=== PATIENT | male | born 1970 | race Caucasian/White ===

== ENCOUNTER 2018-05-30 11:47 | Inpatient (IN) | payer MEDICAID, OTHER ==
[~2018-05-30] VITALS: Ht 190.5 cm; Wt 73.0 kg
[2018-05-30] MEDS ORDERED: normal saline 1000ML IV soln IV ONE (12:25)
[2018-05-30 13:31] LABS: BASOPHILS % (AUTO) 0 % (0-1); EOSINOPHILS % (AUTO) 0.1 % (0-6); HEMATOCRIT 39.6 % (42.0-52.0); HEMOGLOBIN 12.9 g/dl (14.0-17.9); LYMPHOCYTES # (AUTO) 0.4 X10'3 (1.1-4.8); LYMPHOCYTES % (AUTO) 1.6 % (21-51); MEAN CORPUSCULAR HEMOGLOBIN 28.8 PG (27.0-31.0); MEAN CORPUSCULAR HGB CONC 32.4 % (33.0-36.5); MEAN CORPUSCULAR VOLUME 88.7 FL (78-98); MONOCYTES # (AUTO) 0.2 X10'3 (0-0.9); MONOCYTES % (AUTO) 0.7 % (2-12); NEUTROPHILS # (AUTO) 21.8 X10'3 (1.8-7.7); NEUTROPHILS % (AUTO) 97.6 % (42-75); PLATELET COUNT 295 X10'3 (140-440); RED BLOOD COUNT 4.46 X10'6 (4.70-6.10); RED CELL DISTRIBUTION WIDTH 14.9 % (11.5-14.5); WHITE BLOOD COUNT 22.4 X10'3 (4.5-11.0)
[2018-05-30 13:43] LABS: ALANINE AMINOTRANSFERASE 26 U/L (12-78); ALBUMIN 1.7 G/DL (3.4-5.0); ALBUMIN/GLOBULIN RATIO 0.4 (1.1-1.5); ALKALINE PHOSPHATASE 150 IU/L (46-116); ANION GAP 11 (8-16); ASPARTATE AMINO TRANSFERASE 15 U/L (10-37); BILIRUBIN,TOTAL 0.5 MG/DL (0.1-1.0); BLOOD UREA NITROGEN 33 MG/DL (7-18); BUN/CREATININE RATIO 20.9 (5.4-32.0); CHLORIDE 99 MMOL/L (99-107); CREATININE 1.58 MG/DL (0.60-1.10); GLUCOSE 104 MG/DL (70-104); MAGNESIUM 1.6 MG/DL (1.5-2.4); POTASSIUM 3.3 MMOL/L (3.5-5.1); SODIUM 137 MMOL/L (135-145); TOTAL PROTEIN 6.5 G/DL (6.4-8.2); eGFR 47 ML/MIN
[2018-05-30] MEDS ORDERED: iohexol 350MG/ML 100ml bottle IV ONE (13:47)
[2018-05-30 14:03] LABS: PLATELET ESTIMATE NORMAL; TOTAL CELLS COUNTED 100; TOXIC GRANULATION 1+
[2018-05-30] MEDS ORDERED: NO HOME MEDS (14:17)
[2018-05-30] MEDS ORDERED: magnesium hydroxide 30ml (MOM) UD suspension PO PRN (14:35)
[2018-05-30] MEDS ORDERED: mag hydrox/Alum hydrox/simeth 30ml oral suspension PO PRN (14:35)
[2018-05-30] MEDS ORDERED: cefepime 2g/NS 100ml ADVANTAGE 100 ML IV STA (14:35)
[2018-05-30] MEDS ORDERED: ondansetron/PF 4mg/2ml inj IV PRN (14:35)
[2018-05-30 16:05] VITALS: BP 141/78
[2018-05-30 16:29] LABS: CLARITY,URINE SLIGHTLY CLOUDY (Clear); COLOR,URINE YELLOW (Yellow); GLUCOSE, URINE NEGATIVE (Neg); KETONES,URINE NEGATIVE (Neg); LEUKOCYTE ESTERASE ,URINE SMALL (Neg); NITRITES, URINE POSITIVE (Neg); OCCULT BLOOD,URINE NEGATIVE (Neg); PH,URINE >=9.0 (4.8-8.0); PROTEIN,URINE 30 mg/dl (Neg); UROBILINOGEN,URINE 0.2 E.U/dL (0.2-1.0)
[2018-05-30 16:35] VITALS: BP 138/97
[2018-05-30 16:38] LABS: UA COLLECTION TYPE CLN CATCH MIDSTREAM
[2018-05-30 16:39] LABS: BACTERIA,URINE 4+ /HPF (Neg); RBC,URINE NONE SEEN /HPF (0-2); SQUAMOUS EPITHELIAL CELL,UR FEW /LPF (FEW); WBC,URINE 20-30 /HPF (0-4)
[2018-05-30] MEDS ORDERED: tPA-cathflo 2 MG/2 ml IV flush IVF ONE (16:45)
[2018-05-30] MEDS ORDERED: succinylcholine 20mg/ml inj IV ONE (16:50)
[2018-05-30] MEDS ORDERED: alteplase 1 mg/ml 5ml syringe IJ ONE (17:00)
[2018-05-30] MEDS: vancomycin/NS 1 GM ADD-VANTAGE 250 ML IV SCH (17:07)
[2018-05-30] MEDS: normal saline 1000ml 1,000 ML IV SCH (17:07)
[2018-05-30] MEDS: albuterol 2.5 MG/3 ML nebule NEB SCH ×3 (17:32→23:54)
[2018-05-30 19:15] VITALS: BP 139/71
[2018-05-30] MEDS ORDERED: HYDROmorphone 2mg/ml vial IV PRN (20:40)
[2018-05-30] MEDS ORDERED: morphine 2 MG/ML inj. syringe IV PRN (20:40)
[2018-05-30] MEDS ORDERED: potassium Cl 40MEQ/NS 500ml 500 ML IV PRN ×2 (20:40)
[2018-05-30] MEDS: acetaminophen 325mg tablet PO PRN (20:56)
[2018-05-30 22:00] VITALS: BP 136/65
[2018-05-30] MEDS: temazepam 15mg capsule PO PRN (22:18)
[2018-05-30] MEDS: potassium Cl 20 mEq SR tablet PO PRN (22:18)
[2018-05-30] MEDS ORDERED: normal saline 1000ml 1,000 ML IVB ONE (22:52)
[2018-05-30 23:52] LABS: CREATINE KINASE 7 U/L (39-308); LIPASE < 50 U/L (73-393); MAGNESIUM 1.3 MG/DL (1.5-2.4); PHOSPHORUS 3.8 MG/DL (2.3-4.5); TROPONIN I < 0.04 NG/ML (0.0-0.05)
[2018-05-31] VITALS (7 sets, daily range): BP systolic 129–153; BP diastolic 65–83
[2018-05-31] MEDS ORDERED: magnesium 1gm/100ml D5W IVPB 100 ML IV PRN (00:10)
[2018-05-31] MEDS ORDERED: magnesium Cl slow-release 64mg tablet PO PRN (00:10)
[2018-05-31] MEDS ORDERED: magnesium 4gm in 100ml NS 100 ML IV PRN (00:10)
[2018-05-31] MEDS ORDERED: albumin (human) 25% 100ml IV 100 ML IV ONE (00:15)
[2018-05-31] MEDS: normal saline 1000ml 1,000 ML IV SCH ×2 (00:35→21:04)
[2018-05-31 01:56] LABS: ABG BASE EXCESS -3.3 mmol/L (-2.0-3.0); ABG HCO3 20.9 mmol/L (22.0-26.0); ABG OXYGEN SATURATION 96.5 % (95-98); ABG PCO2 (T) 34.9 mmHg (35.0-48.0); ABG PH (T) 7.397 (7.350-7.450); ABG PO2 (T) 89.4 mmHg (83-108); ALLEN'S TEST Positive; FCOHb 0.3 % (0.5-1.5); FLOW 4 L/min; FMetHb 0.1 % (0.3-1.12); FO2Hb 96.1 % (94-100); PATIENT TEMPERATURE 37.1
[2018-05-31] MEDS ORDERED: diltiazem 5mg/ml 5ml inj. IV PRN (02:40)
[2018-05-31] MEDS: vancomycin/NS 1 GM ADD-VANTAGE 250 ML IV SCH ×2 (02:50→14:59)
[2018-05-31] MEDS: potassium Cl 20 mEq SR tablet PO PRN (02:50)
[2018-05-31] MEDS: albuterol 2.5 MG/3 ML nebule NEB SCH ×6 (04:02→23:31)
[2018-05-31 07:18] LABS: BASOPHILS % (AUTO) 0.1 % (0-1); EOSINOPHILS # (AUTO) 0.3 X10'3 (0-0.9); EOSINOPHILS % (AUTO) 1.7 % (0-6); HEMATOCRIT 34.6 % (42.0-52.0); HEMOGLOBIN 11.3 g/dl (14.0-17.9); LYMPHOCYTES # (AUTO) 0.4 X10'3 (1.1-4.8); LYMPHOCYTES % (AUTO) 2.7 % (21-51); MEAN CORPUSCULAR HEMOGLOBIN 28.7 PG (27.0-31.0); MEAN CORPUSCULAR HGB CONC 32.6 % (33.0-36.5); MEAN CORPUSCULAR VOLUME 88.3 FL (78-98); MEAN PLATELET VOLUME 6.3 FL (7.4-10.4); MONOCYTES # (AUTO) 0.1 X10'3 (0-0.9); MONOCYTES % (AUTO) 0.8 % (2-12); NEUTROPHILS # (AUTO) 15.5 X10'3 (1.8-7.7); NEUTROPHILS % (AUTO) 94.7 % (42-75); PLATELET COUNT 238 X10'3 (140-440); RED BLOOD COUNT 3.93 X10'6 (4.70-6.10); WHITE BLOOD COUNT 16.3 X10'3 (4.5-11.0)
[2018-05-31 07:26] LABS: ALBUMIN 1.5 G/DL (3.4-5.0); ANION GAP 12 (8-16); BLOOD UREA NITROGEN 24 MG/DL (7-18); CALCIUM 8.1 MG/DL (8.5-10.1); CHLORIDE 106 MMOL/L (99-107); GLUCOSE 84 MG/DL (70-104); MAGNESIUM 1.5 MG/DL (1.5-2.4); POTASSIUM 3.8 MMOL/L (3.5-5.1); SODIUM 142 MMOL/L (135-145); TOTAL CARBON DIOXIDE 23.6 MMOL/L (24-32); eGFR 50 ML/MIN
[2018-05-31] MEDS: cefepime 2g/NS 100ml ADVANTAGE 100 ML IV SCH ×2 (07:59→20:58)
[2018-05-31] MEDS: nicotine 21mg patch - 24 hr TD SCH (08:00)
[2018-05-31] MEDS ORDERED: alteplase 1 mg/ml 5ml syringe ICATH ONE (08:20)
[2018-05-31] MEDS: acetaminophen 325mg tablet PO PRN (12:39)
[2018-05-31] MEDS ORDERED: normal saline 1000ml 1,000 ML IVB ONE (14:52)
[2018-05-31] MEDS: heparin, porcine 5000 units/ml vial SQ SCH (16:00)
[2018-05-31] MEDS: lactobacillus rhamnosus 10,000 MMU CELLS/CAPSULE PO SCH (21:03)
[2018-05-31] MEDS: temazepam 15mg capsule PO PRN (21:22)
[2018-06-01] MEDS: normal saline 1000ml 1,000 ML IV SCH ×2 (00:40→03:32)
[2018-06-01] MEDS: heparin, porcine 5000 units/ml vial SQ SCH ×3 (00:52→16:00)
[2018-06-01] MEDS ORDERED: VANCOMYCIN LEVEL IV ONE (02:30)
[2018-06-01 02:57] LABS: BASOPHILS % (AUTO) 0.1 % (0-1); EOSINOPHILS # (AUTO) 0.4 X10'3 (0-0.9); EOSINOPHILS % (AUTO) 2.1 % (0-6); HEMATOCRIT 32.6 % (42.0-52.0); HEMOGLOBIN 10.9 g/dl (14.0-17.9); LYMPHOCYTES # (AUTO) 0.7 X10'3 (1.1-4.8); MEAN CORPUSCULAR HEMOGLOBIN 29.2 PG (27.0-31.0); MEAN CORPUSCULAR HGB CONC 33.3 % (33.0-36.5); MEAN CORPUSCULAR VOLUME 87.5 FL (78-98); MEAN PLATELET VOLUME 6.4 FL (7.4-10.4); MONOCYTES % (AUTO) 0.2 % (2-12); NEUTROPHILS # (AUTO) 17.2 X10'3 (1.8-7.7); NEUTROPHILS % (AUTO) 93.6 % (42-75); PLATELET COUNT 248 X10'3 (140-440); RED BLOOD COUNT 3.73 X10'6 (4.70-6.10); WHITE BLOOD COUNT 18.4 X10'3 (4.5-11.0)
[2018-06-01 03:00] VITALS: BP 152/81
[2018-06-01 03:08] LABS: ALBUMIN 1.2 G/DL (3.4-5.0); ANION GAP 11 (8-16); BLOOD UREA NITROGEN 19 MG/DL (7-18); BUN/CREATININE RATIO 16.4 (5.4-32.0); CALCIUM 8.3 MG/DL (8.5-10.1); CHLORIDE 105 MMOL/L (99-107); CREATININE 1.16 MG/DL (0.60-1.10); GLUCOSE 98 MG/DL (70-104); MAGNESIUM 1.7 MG/DL (1.5-2.4); POTASSIUM 3.4 MMOL/L (3.5-5.1); SODIUM 139 MMOL/L (135-145); TOTAL CARBON DIOXIDE 22.9 MMOL/L (24-32); VANCOMYCIN,TROUGH 11.1 UG/ML (6.0-14.0); eGFR 67 ML/MIN
[2018-06-01] MEDS: vancomycin/NS 1 GM ADD-VANTAGE 250 ML IV SCH (03:13)
[2018-06-01] MEDS: acetaminophen 325mg tablet PO PRN (03:27)
[2018-06-01] MEDS: albuterol 2.5 MG/3 ML nebule NEB SCH ×6 (03:43→23:40)
[2018-06-01 06:00] VITALS: BP 126/65
[2018-06-01] MEDS: lactobacillus rhamnosus 10,000 MMU CELLS/CAPSULE PO SCH ×2 (07:36→21:33)
[2018-06-01] MEDS: potassium Cl 20 mEq SR tablet PO PRN ×3 (07:36→21:33)
[2018-06-01] MEDS: cefepime 2g/NS 100ml ADVANTAGE 100 ML IV SCH ×2 (07:38→21:33)
[2018-06-01] MEDS: nicotine 21mg patch - 24 hr TD SCH (08:00)
[2018-06-01 11:00] VITALS: BP 135/84
[2018-06-01] MEDS: HYDROcodone/acetaminophen 5mg/325mg tablet PO PRN ×2 (12:26→21:54)
[2018-06-01 15:00] VITALS: BP 142/83
[2018-06-01] MEDS: vancomycin inj 1,250 MG in normal saline 250ml IV soln 250 ML IV SCH (16:19)
[2018-06-01 19:00] VITALS: BP 139/80
[2018-06-01 23:00] VITALS: BP 137/66
[2018-06-02] VITALS (16 sets, daily range): BP systolic 80–154; BP diastolic 44–86
[2018-06-02] MEDS: heparin, porcine 5000 units/ml vial SQ SCH ×3 (00:22→16:00)
[2018-06-02] MEDS ORDERED: diphenhydrAMINE 50 mg/ml inj IV PRN (03:20)
[2018-06-02] MEDS: vancomycin inj 1,250 MG in normal saline 250ml IV soln 250 ML IV SCH (03:24)
[2018-06-02] MEDS: albuterol 2.5 MG/3 ML nebule NEB SCH ×6 (03:30→23:04)
[2018-06-02 05:47] LABS: BASOPHILS % (AUTO) 0 % (0-1); EOSINOPHILS # (AUTO) 0.4 X10'3 (0-0.9); EOSINOPHILS % (AUTO) 1.9 % (0-6); HEMATOCRIT 31.6 % (42.0-52.0); HEMOGLOBIN 10.6 g/dl (14.0-17.9); LYMPHOCYTES # (AUTO) 0.8 X10'3 (1.1-4.8); LYMPHOCYTES % (AUTO) 3.7 % (21-51); MEAN CORPUSCULAR HEMOGLOBIN 29.4 PG (27.0-31.0); MEAN CORPUSCULAR HGB CONC 33.6 % (33.0-36.5); MEAN CORPUSCULAR VOLUME 87.3 FL (78-98); MEAN PLATELET VOLUME 6.8 FL (7.4-10.4); MONOCYTES # (AUTO) 0.6 X10'3 (0-0.9); MONOCYTES % (AUTO) 2.4 % (2-12); NEUTROPHILS # (AUTO) 20.9 X10'3 (1.8-7.7); PLATELET COUNT 282 X10'3 (140-440); RED BLOOD COUNT 3.62 X10'6 (4.70-6.10); RED CELL DISTRIBUTION WIDTH 15.2 % (11.5-14.5); WHITE BLOOD COUNT 22.7 X10'3 (4.5-11.0)
[2018-06-02 05:54] LABS: ALBUMIN 1.1 G/DL (3.4-5.0); ANION GAP 10 (8-16); BLOOD UREA NITROGEN 22 MG/DL (7-18); BUN/CREATININE RATIO 19.5 (5.4-32.0); CALCIUM 8.4 MG/DL (8.5-10.1); CHLORIDE 104 MMOL/L (99-107); CREATININE 1.13 MG/DL (0.60-1.10); GLUCOSE 78 MG/DL (70-104); MAGNESIUM 1.9 MG/DL (1.5-2.4); POTASSIUM 3.9 MMOL/L (3.5-5.1); SODIUM 138 MMOL/L (135-145); TOTAL CARBON DIOXIDE 23.7 MMOL/L (24-32); eGFR 69 ML/MIN
[2018-06-02 07:27] LABS: TOTAL CELLS COUNTED 100
[2018-06-02 07:28] LABS: ANISOCYTOSIS 1+; PLATELET ESTIMATE NORMAL; POLYCHROMASIA FEW; TARGET CELLS FEW
[2018-06-02] MEDS: lactobacillus rhamnosus 10,000 MMU CELLS/CAPSULE PO SCH ×2 (08:00→19:29)
[2018-06-02] MEDS: nicotine 21mg patch - 24 hr TD SCH (08:00)
[2018-06-02] MEDS ORDERED: fentaNYL/PF 50MCG/1 ML 2ML syringe ONE (08:09)
[2018-06-02] MEDS ORDERED: propofol inj 20 ML IV ONE ×2 (08:10→12:06)
[2018-06-02] MEDS ORDERED: LIDOcaine 2% (20mg/ml) 5ml vial ONE ×2 (08:10)
[2018-06-02] MEDS ORDERED: midazolam 2 mg/2 ml injection ONE (08:10)
[2018-06-02] MEDS ORDERED: ondansetron/PF 4mg/2ml inj ONE (08:20)
[2018-06-02] MEDS ORDERED: dexamethasone sod phosphate 4mg/ml inj. ONE (08:20)
[2018-06-02] MEDS: cefepime 2g/NS 100ml ADVANTAGE 100 ML IV SCH ×2 (08:24→19:29)
[2018-06-02] MEDS ORDERED: ringers solution, lacted 1,000 ML IV SCH ×2 (08:39→08:44)
[2018-06-02] MEDS ORDERED: ondansetron/PF 4mg/2ml inj IV PRN ×3 (08:40→15:00)
[2018-06-02] MEDS ORDERED: meperidine/PF 25mg/ml syringe IV PRN ×6 (08:40→08:45)
[2018-06-02] MEDS ORDERED: proCHLORperazine 10 MG/2 ml inj IV PRN ×2 (08:40→08:45)
[2018-06-02] MEDS ORDERED: morphine 4 MG/ML inj SYRINge IV PRN ×6 (08:40→15:00)
[2018-06-02] MEDS ORDERED: meperidine/PF 50mg/ml syringe ONE (09:04)
[2018-06-02] MEDS ORDERED: BUPIVAcaine/PF 2.5mg/ml (0.25%) 10ml vial ONE (10:59)
[2018-06-02] MEDS ORDERED: LIDOcaine 1% (10mg/ml) 2ml vial ONE ×2 (10:59→11:39)
[2018-06-02] MEDS ORDERED: fentaNYL /PF 50mcg/ml 5ml ampule ONE ×2 (12:00→13:09)
[2018-06-02] MEDS ORDERED: MIDAZolam 5mg/5ml vial ONE (12:00)
[2018-06-02] MEDS ORDERED: rocuronium 10mg/ml inj IV ONE (12:06)
[2018-06-02] MEDS ORDERED: pancuronium br 1mg/ml inj IV ONE (13:09)
[2018-06-02] MEDS ORDERED: albumin (Human) 5% 250ml 250 ML IV ONE (13:29)
[2018-06-02] MEDS ORDERED: naloxone 0.4 mg/ml inj IV PRN (15:00)
[2018-06-02] MEDS ORDERED: albuterol 2.5 MG/3 ML nebule NEB PRN (15:00)
[2018-06-02] MEDS ORDERED: metoclopramide 5 mg/ml inj IV PRN (15:00)
[2018-06-02] MEDS ORDERED: CADD PCA waste documentation MC PRN (15:00)
[2018-06-02] MEDS ORDERED: HYDROcodone/acetaminophen 10/325mg tab PO PRN (15:00)
[2018-06-02] MEDS: propofol 1000mg/100ml bottle 100 ML IV PRN ×2 (15:19→15:30)
[2018-06-02 15:25] LABS: ABG HCO3 20.4 mmol/L (22.0-26.0); ABG OXYGEN SATURATION 96.7 % (95-98); ABG PCO2 (T) 43.9 mmHg (35.0-48.0); ABG PH (T) 7.285 (7.350-7.450); ABG PO2 (T) 100.3 mmHg (83-108); FCOHb 0.6 % (0.5-1.5); FMetHb 0.2 % (0.3-1.12); FO2Hb 95.9 % (94-100); MINUTE VOLUME 12 L/min; PEEP 10 cm H2O; RESPIRATORY RATE 12 b/min; RESPIRATORY RATE (OBSERVED) 20 b/min; TIDAL VOLUME 700 mL; TOTAL HEMOGLOBIN 11.5 G/dl (14.0-18.0)
[2018-06-02] MEDS: FENTANYL-0.9 % NACL/PF 100 ML IV PRN ×2 (15:31→21:42)
[2018-06-02] MEDS: potassium Cl 20mEq in D5-NS 1,000 ML IV SCH (16:18)
[2018-06-02 19:11] LABS: BASOPHILS % (AUTO) 0 % (0-1); EOSINOPHILS # (AUTO) 0.5 X10'3 (0-0.9); EOSINOPHILS % (AUTO) 1.5 % (0-6); HEMATOCRIT 28.8 % (42.0-52.0); HEMOGLOBIN 9.5 g/dl (14.0-17.9); LYMPHOCYTES # (AUTO) 0.7 X10'3 (1.1-4.8); LYMPHOCYTES % (AUTO) 2.3 % (21-51); MEAN CORPUSCULAR HEMOGLOBIN 28.7 PG (27.0-31.0); MEAN CORPUSCULAR VOLUME 86.9 FL (78-98); MEAN PLATELET VOLUME 6.9 FL (7.4-10.4); MONOCYTES # (AUTO) 0.2 X10'3 (0-0.9); MONOCYTES % (AUTO) 0.7 % (2-12); NEUTROPHILS # (AUTO) 29.8 X10'3 (1.8-7.7); NEUTROPHILS % (AUTO) 95.5 % (42-75); PLATELET COUNT 306 X10'3 (140-440); RED BLOOD COUNT 3.31 X10'6 (4.70-6.10); RED CELL DISTRIBUTION WIDTH 14.7 % (11.5-14.5)
[2018-06-02] MEDS: NORepinephrine 8mg/ 250ml NS 250 ML IV SCH (19:15)
[2018-06-02 19:16] LABS: WHITE BLOOD COUNT 31.2 X10'3 (4.5-11.0)
[2018-06-02] MEDS ORDERED: NORepinephrine 8mg/ 250ml NS 250 ML IV ONE (19:20)
[2018-06-02 19:21] LABS: ALBUMIN 1.1 G/DL (3.4-5.0); ANION GAP 9 (8-16); BLOOD UREA NITROGEN 29 MG/DL (7-18); BUN/CREATININE RATIO 22.5 (5.4-32.0); CALCIUM 7.6 MG/DL (8.5-10.1); CHLORIDE 106 MMOL/L (99-107); CREATININE 1.29 MG/DL (0.60-1.10); GLUCOSE 127 MG/DL (70-104); MAGNESIUM 1.8 MG/DL (1.5-2.4); POTASSIUM 4.8 MMOL/L (3.5-5.1); SODIUM 138 MMOL/L (135-145); TOTAL CARBON DIOXIDE 22.9 MMOL/L (24-32); eGFR 59 ML/MIN
[2018-06-02 19:33] LABS: TOTAL CELLS COUNTED 100
[2018-06-02] MEDS: midazolam 100mg in NS 100ml 100 ML IV PRN (19:33)
[2018-06-02 19:34] LABS: PLATELET ESTIMATE NORMAL
[2018-06-03] VITALS (24 sets, daily range): BP systolic 99–146; BP diastolic 52–66
[2018-06-03] MEDS ORDERED: VANCOMYCIN LEVEL IV NR (02:30)
[2018-06-03] MEDS: albuterol 2.5 MG/3 ML nebule NEB SCH ×6 (02:52→23:11)
[2018-06-03 03:07] LABS: BASOPHILS % (AUTO) 0 % (0-1); EOSINOPHILS # (AUTO) 0.1 X10'3 (0-0.9); EOSINOPHILS % (AUTO) 0.2 % (0-6); HEMATOCRIT 27.8 % (42.0-52.0); HEMOGLOBIN 8.9 g/dl (14.0-17.9); LYMPHOCYTES # (AUTO) 1.3 X10'3 (1.1-4.8); LYMPHOCYTES % (AUTO) 4.4 % (21-51); MEAN CORPUSCULAR HEMOGLOBIN 28.1 PG (27.0-31.0); MEAN CORPUSCULAR VOLUME 87.7 FL (78-98); MEAN PLATELET VOLUME 6.9 FL (7.4-10.4); MONOCYTES # (AUTO) 0.8 X10'3 (0-0.9); MONOCYTES % (AUTO) 2.7 % (2-12); NEUTROPHILS # (AUTO) 26.7 X10'3 (1.8-7.7); NEUTROPHILS % (AUTO) 92.7 % (42-75); PLATELET COUNT 377 X10'3 (140-440); RED BLOOD COUNT 3.17 X10'6 (4.70-6.10); RED CELL DISTRIBUTION WIDTH 14.6 % (11.5-14.5)
[2018-06-03 03:23] LABS: WHITE BLOOD COUNT 28.8 X10'3 (4.5-11.0)
[2018-06-03 03:24] LABS: ALANINE AMINOTRANSFERASE 15 U/L (12-78); ALBUMIN/GLOBULIN RATIO 0.3 (1.1-1.5); ALKALINE PHOSPHATASE 101 IU/L (46-116); ANION GAP 10 (8-16); ASPARTATE AMINO TRANSFERASE 25 U/L (10-37); BILIRUBIN,TOTAL 0.4 MG/DL (0.1-1.0); BLOOD UREA NITROGEN 35 MG/DL (7-18); BUN/CREATININE RATIO 24.1 (5.4-32.0); CALCIUM 7.7 MG/DL (8.5-10.1); CHLORIDE 108 MMOL/L (99-107); CREATININE 1.45 MG/DL (0.60-1.10); GLUCOSE 124 MG/DL (70-104); POTASSIUM 4.6 MMOL/L (3.5-5.1); SODIUM 140 MMOL/L (135-145); TOTAL CARBON DIOXIDE 22.4 MMOL/L (24-32); TOTAL PROTEIN 4.9 G/DL (6.4-8.2); VANCOMYCIN,TROUGH 11.2 UG/ML (6.0-14.0); eGFR 52 ML/MIN
[2018-06-03] MEDS: potassium Cl 20mEq in D5-NS 1,000 ML IV SCH ×2 (03:40→15:39)
[2018-06-03 04:15] LABS: ABG BASE EXCESS -3.9 mmol/L (-2.0-3.0); ABG HCO3 21.2 mmol/L (22.0-26.0); ABG OXYGEN SATURATION 97.7 % (95-98); ABG PCO2 (T) 39.3 mmHg (35.0-48.0); ABG PH (T) 7.351 (7.350-7.450); ABG PO2 (T) 114.9 mmHg (83-108); FCOHb 0.3 % (0.5-1.5); FMetHb 0.3 % (0.3-1.12); FO2Hb 97.1 % (94-100); MINUTE VOLUME 10 L/min; PATIENT TEMPERATURE 37.2; PEEP 5 cm H2O; RESPIRATORY RATE 12 b/min; RESPIRATORY RATE (OBSERVED) 15 b/min; TIDAL VOLUME 700 mL; TOTAL HEMOGLOBIN 9.9 G/dl (14.0-18.0)
[2018-06-03 04:36] LABS: TOTAL CELLS COUNTED 100
[2018-06-03 04:37] LABS: PLATELET ESTIMATE NORMAL; POIKILOCYTOSIS FEW
[2018-06-03] MEDS: FENTANYL-0.9 % NACL/PF 100 ML IV PRN ×2 (05:51→15:40)
[2018-06-03] MEDS: midazolam 100mg in NS 100ml 100 ML IV PRN (05:52)
[2018-06-03] MEDS: lactobacillus rhamnosus 10,000 MMU CELLS/CAPSULE PO SCH ×2 (07:32→20:44)
[2018-06-03] MEDS: methylnaltrexone br 12mg/0.6ml inj***SubQ only SQ SCH (07:32)
[2018-06-03] MEDS: heparin, porcine 5000 units/ml vial SQ SCH ×3 (07:32→15:39)
[2018-06-03] MEDS: nicotine 21mg patch - 24 hr TD SCH (07:33)
[2018-06-03] MEDS: cefepime 2g/NS 100ml ADVANTAGE 100 ML IV SCH ×2 (09:13→20:45)
[2018-06-04] VITALS (24 sets, daily range): BP systolic 95–141; BP diastolic 51–67
[2018-06-04] MEDS: heparin, porcine 5000 units/ml vial SQ SCH ×3 (00:06→15:48)
[2018-06-04] MEDS: potassium Cl 20mEq in D5-NS 1,000 ML IV SCH (02:20)
[2018-06-04] MEDS: FENTANYL-0.9 % NACL/PF 100 ML IV PRN ×2 (02:21→15:45)
[2018-06-04] MEDS: midazolam 100mg in NS 100ml 100 ML IV PRN (02:22)
[2018-06-04] MEDS: albuterol 2.5 MG/3 ML nebule NEB SCH ×6 (03:17→23:14)
[2018-06-04 04:06] LABS: ABG BASE EXCESS -3.2 mmol/L (-2.0-3.0); ABG HCO3 20.8 mmol/L (22.0-26.0); ABG OXYGEN SATURATION 97.3 % (95-98); ABG PCO2 (T) 33.6 mmHg (35.0-48.0); ABG PH (T) 7.411 (7.350-7.450); ABG PO2 (T) 108.4 mmHg (83-108); FCOHb 0.3 % (0.5-1.5); FMetHb 0.3 % (0.3-1.12); FO2Hb 96.7 % (94-100); MINUTE VOLUME 12 L/min; PATIENT TEMPERATURE 37.5; PEEP 5 cm H2O; RESPIRATORY RATE 12 b/min; RESPIRATORY RATE (OBSERVED) 18 b/min; TIDAL VOLUME 700 mL; TOTAL HEMOGLOBIN 8.5 G/dl (14.0-18.0)
[2018-06-04 04:13] LABS: BASOPHILS % (AUTO) 0 % (0-1); EOSINOPHILS # (AUTO) 0.2 X10'3 (0-0.9); EOSINOPHILS % (AUTO) 1.2 % (0-6); HEMOGLOBIN 7.8 g/dl (14.0-17.9); LYMPHOCYTES # (AUTO) 1.3 X10'3 (1.1-4.8); LYMPHOCYTES % (AUTO) 7.2 % (21-51); MEAN CORPUSCULAR HEMOGLOBIN 28.7 PG (27.0-31.0); MEAN CORPUSCULAR HGB CONC 32.7 % (33.0-36.5); MEAN CORPUSCULAR VOLUME 87.9 FL (78-98); MONOCYTES # (AUTO) 0.5 X10'3 (0-0.9); MONOCYTES % (AUTO) 2.8 % (2-12); NEUTROPHILS # (AUTO) 16.2 X10'3 (1.8-7.7); NEUTROPHILS % (AUTO) 88.8 % (42-75); PLATELET COUNT 364 X10'3 (140-440); RED BLOOD COUNT 2.73 X10'6 (4.70-6.10); RED CELL DISTRIBUTION WIDTH 14.8 % (11.5-14.5); WHITE BLOOD COUNT 18.2 X10'3 (4.5-11.0)
[2018-06-04 04:21] LABS: ALANINE AMINOTRANSFERASE 18 U/L (12-78); ALBUMIN 0.9 G/DL (3.4-5.0); ALBUMIN/GLOBULIN RATIO 0.2 (1.1-1.5); ALKALINE PHOSPHATASE 102 IU/L (46-116); ANION GAP 6 (8-16); ASPARTATE AMINO TRANSFERASE 37 U/L (10-37); BILIRUBIN,TOTAL 0.3 MG/DL (0.1-1.0); BLOOD UREA NITROGEN 29 MG/DL (7-18); BUN/CREATININE RATIO 23.8 (5.4-32.0); CHLORIDE 112 MMOL/L (99-107); CREATININE 1.22 MG/DL (0.60-1.10); GLUCOSE 117 MG/DL (70-104); POTASSIUM 4.8 MMOL/L (3.5-5.1); SODIUM 142 MMOL/L (135-145); TOTAL CARBON DIOXIDE 24.5 MMOL/L (24-32); TOTAL PROTEIN 5.1 G/DL (6.4-8.2); eGFR 63 ML/MIN
[2018-06-04] MEDS: nicotine 21mg patch - 24 hr TD SCH (07:26)
[2018-06-04] MEDS: cefepime 2g/NS 100ml ADVANTAGE 100 ML IV SCH ×2 (07:26→19:56)
[2018-06-04] MEDS: lactobacillus rhamnosus 10,000 MMU CELLS/CAPSULE PO SCH ×2 (07:27→19:56)
[2018-06-04] MEDS ORDERED: acetylcysteine 200 MG/ml 4ml vial INH PRN (09:50)
[2018-06-04 10:13] LABS: TOTAL CELLS COUNTED 100
[2018-06-04 10:14] LABS: ANISOCYTOSIS 1+; PLATELET ESTIMATE NORMAL
[2018-06-04] MEDS: sodium chloride 0.45% 1,000 ML IV SCH (13:23)
[2018-06-04] MEDS: NORepinephrine 8mg/ 250ml NS 250 ML IV SCH (19:15)
[2018-06-05] VITALS (24 sets, daily range): BP systolic 101–144; BP diastolic 56–72
[2018-06-05] MEDS: FENTANYL-0.9 % NACL/PF 100 ML IV PRN (00:45)
[2018-06-05] MEDS: heparin, porcine 5000 units/ml vial SQ SCH ×4 (00:46→23:31)
[2018-06-05] MEDS: sodium chloride 0.45% 1,000 ML IV SCH ×2 (00:48→14:21)
[2018-06-05] MEDS: albuterol 2.5 MG/3 ML nebule NEB SCH ×6 (02:52→23:30)
[2018-06-05 03:10] LABS: ABG BASE EXCESS 0.8 mmol/L (-2.0-3.0); ABG HCO3 25.9 mmol/L (22.0-26.0); ABG OXYGEN SATURATION 97.9 % (95-98); ABG PCO2 (T) 45.1 mmHg (35.0-48.0); ABG PO2 (T) 115.8 mmHg (83-108); FCOHb 0.3 % (0.5-1.5); FO2Hb 97.6 % (94-100); MINUTE VOLUME 9 L/min; PATIENT TEMPERATURE 37.5; PEEP 5 cm H2O; RESPIRATORY RATE (OBSERVED) 19 b/min; TOTAL HEMOGLOBIN 8.6 G/dl (14.0-18.0)
[2018-06-05 03:36] LABS: BASOPHILS % (AUTO) 0 % (0-1); EOSINOPHILS # (AUTO) 0.3 X10'3 (0-0.9); EOSINOPHILS % (AUTO) 1.9 % (0-6); HEMATOCRIT 23.8 % (42.0-52.0); HEMOGLOBIN 7.7 g/dl (14.0-17.9); LYMPHOCYTES # (AUTO) 1.4 X10'3 (1.1-4.8); LYMPHOCYTES % (AUTO) 8.9 % (21-51); MEAN CORPUSCULAR HEMOGLOBIN 28.4 PG (27.0-31.0); MEAN CORPUSCULAR HGB CONC 32.3 % (33.0-36.5); MEAN PLATELET VOLUME 7.2 FL (7.4-10.4); MONOCYTES # (AUTO) 0.5 X10'3 (0-0.9); MONOCYTES % (AUTO) 3.4 % (2-12); NEUTROPHILS # (AUTO) 13.3 X10'3 (1.8-7.7); NEUTROPHILS % (AUTO) 85.8 % (42-75); PLATELET COUNT 412 X10'3 (140-440); WHITE BLOOD COUNT 15.6 X10'3 (4.5-11.0)
[2018-06-05 04:20] LABS: ALANINE AMINOTRANSFERASE 33 U/L (12-78); ALBUMIN 1.1 G/DL (3.4-5.0); ALBUMIN/GLOBULIN RATIO 0.2 (1.1-1.5); ALKALINE PHOSPHATASE 130 IU/L (46-116); ANION GAP 5 (8-16); ASPARTATE AMINO TRANSFERASE 53 U/L (10-37); BILIRUBIN,TOTAL 0.2 MG/DL (0.1-1.0); BLOOD UREA NITROGEN 23 MG/DL (7-18); BUN/CREATININE RATIO 23.5 (5.4-32.0); CALCIUM 8.5 MG/DL (8.5-10.1); CHLORIDE 109 MMOL/L (99-107); CREATININE 0.98 MG/DL (0.60-1.10); GLUCOSE 108 MG/DL (70-104); POTASSIUM 4.6 MMOL/L (3.5-5.1); SODIUM 141 MMOL/L (135-145); TOTAL CARBON DIOXIDE 27.2 MMOL/L (24-32); TOTAL PROTEIN 5.8 G/DL (6.4-8.2); eGFR 81 ML/MIN
[2018-06-05 07:39] LABS: ANISOCYTOSIS 1+; PLATELET ESTIMATE NORMAL; POLYCHROMASIA FEW; TOTAL CELLS COUNTED 100
[2018-06-05] MEDS: lactobacillus rhamnosus 10,000 MMU CELLS/CAPSULE PO SCH ×2 (07:42→19:40)
[2018-06-05] MEDS: cefepime 2g/NS 100ml ADVANTAGE 100 ML IV SCH ×2 (07:42→19:40)
[2018-06-05] MEDS: nicotine 21mg patch - 24 hr TD SCH (07:42)
[2018-06-05] MEDS: methylnaltrexone br 12mg/0.6ml inj***SubQ only SQ SCH (07:42)
[2018-06-05] MEDS: HYDROmorphone/NS 1 mg/ml CADD 50 ML IV SCH ×8 (10:08→23:00)
[2018-06-05] MEDS: acetaminophen 325mg tablet PO PRN (23:31)
[2018-06-06] VITALS (24 sets, daily range): BP systolic 101–132; BP diastolic 45–66
[2018-06-06] MEDS: HYDROmorphone/NS 1 mg/ml CADD 50 ML IV SCH ×13 (01:00→23:00)
[2018-06-06] MEDS: sodium chloride 0.45% 1,000 ML IV SCH ×2 (03:19→15:15)
[2018-06-06] MEDS: albuterol 2.5 MG/3 ML nebule NEB SCH ×3 (03:31→11:55)
[2018-06-06 03:41] LABS: BASOPHILS # (AUTO) 0.1 X10'3 (0-0.2); BASOPHILS % (AUTO) 0.5 % (0-1); EOSINOPHILS # (AUTO) 0.3 X10'3 (0-0.9); EOSINOPHILS % (AUTO) 2.4 % (0-6); HEMATOCRIT 24.5 % (42.0-52.0); HEMOGLOBIN 8.2 g/dl (14.0-17.9); LYMPHOCYTES # (AUTO) 1.7 X10'3 (1.1-4.8); LYMPHOCYTES % (AUTO) 12.8 % (21-51); MEAN CORPUSCULAR HEMOGLOBIN 28.8 PG (27.0-31.0); MEAN CORPUSCULAR HGB CONC 33.4 % (33.0-36.5); MEAN CORPUSCULAR VOLUME 86.3 FL (78-98); MONOCYTES # (AUTO) 0.5 X10'3 (0-0.9); MONOCYTES % (AUTO) 3.9 % (2-12); NEUTROPHILS # (AUTO) 10.6 X10'3 (1.8-7.7); NEUTROPHILS % (AUTO) 80.4 % (42-75); PLATELET COUNT 564 X10'3 (140-440); RED BLOOD COUNT 2.83 X10'6 (4.70-6.10); RED CELL DISTRIBUTION WIDTH 14.5 % (11.5-14.5); WHITE BLOOD COUNT 13.2 X10'3 (4.5-11.0)
[2018-06-06 04:15] LABS: ALANINE AMINOTRANSFERASE 29 U/L (12-78); ALBUMIN 1.1 G/DL (3.4-5.0); ALBUMIN/GLOBULIN RATIO 0.2 (1.1-1.5); ALKALINE PHOSPHATASE 112 IU/L (46-116); ANION GAP 3 (8-16); ASPARTATE AMINO TRANSFERASE 38 U/L (10-37); BILIRUBIN,TOTAL 0.3 MG/DL (0.1-1.0); BLOOD UREA NITROGEN 22 MG/DL (7-18); BUN/CREATININE RATIO 24.4 (5.4-32.0); CALCIUM 8.4 MG/DL (8.5-10.1); CHLORIDE 103 MMOL/L (99-107); GLUCOSE 85 MG/DL (70-104); POTASSIUM 4.3 MMOL/L (3.5-5.1); PREALBUMIN 10.2 MG/DL (19-36); SODIUM 135 MMOL/L (135-145); TOTAL CARBON DIOXIDE 29.1 MMOL/L (24-32); TOTAL PROTEIN 5.9 G/DL (6.4-8.2); eGFR 90 ML/MIN
[2018-06-06 07:08] LABS: PLATELET ESTIMATE INCREASED; TOTAL CELLS COUNTED 100
[2018-06-06] MEDS: cefepime 2g/NS 100ml ADVANTAGE 100 ML IV SCH (08:57)
[2018-06-06] MEDS: nicotine 21mg patch - 24 hr TD SCH (08:57)
[2018-06-06] MEDS: heparin, porcine 5000 units/ml vial SQ SCH ×3 (08:58→23:31)
[2018-06-06] MEDS: lactobacillus rhamnosus 10,000 MMU CELLS/CAPSULE PO SCH ×2 (08:59→21:45)
[2018-06-06] MEDS: CefTRIAXone 2gm/D5W 50ml 50 ML IV SCH (09:00)
[2018-06-06] MEDS: NORepinephrine 8mg/ 250ml NS 250 ML IV SCH (19:15)
[2018-06-06] MEDS ORDERED: temazepam 15mg capsule PO PRN (19:35)
[2018-06-06] MEDS: temazepam 15mg capsule PO PRN (21:45)
[2018-06-07] VITALS (17 sets, daily range): BP systolic 80–133; BP diastolic 41–63
[2018-06-07] MEDS: HYDROmorphone/NS 1 mg/ml CADD 50 ML IV SCH ×5 (01:00→09:00)
[2018-06-07] MEDS: sodium chloride 0.45% 1,000 ML IV SCH ×2 (03:55→13:26)
[2018-06-07 05:00] LABS: BASOPHILS % (AUTO) 0.3 % (0-1); EOSINOPHILS # (AUTO) 0.3 X10'3 (0-0.9); EOSINOPHILS % (AUTO) 2.4 % (0-6); HEMOGLOBIN 8.9 g/dl (14.0-17.9); LYMPHOCYTES # (AUTO) 1.5 X10'3 (1.1-4.8); LYMPHOCYTES % (AUTO) 10.9 % (21-51); MEAN CORPUSCULAR HEMOGLOBIN 28.6 PG (27.0-31.0); MEAN CORPUSCULAR VOLUME 86.7 FL (78-98); MEAN PLATELET VOLUME 7.4 FL (7.4-10.4); MONOCYTES # (AUTO) 0.5 X10'3 (0-0.9); MONOCYTES % (AUTO) 3.3 % (2-12); NEUTROPHILS # (AUTO) 11.8 X10'3 (1.8-7.7); NEUTROPHILS % (AUTO) 83.1 % (42-75); PLATELET COUNT 740 X10'3 (140-440); RED BLOOD COUNT 3.11 X10'6 (4.70-6.10); RED CELL DISTRIBUTION WIDTH 14.5 % (11.5-14.5); WHITE BLOOD COUNT 14.2 X10'3 (4.5-11.0)
[2018-06-07 05:15] LABS: ALANINE AMINOTRANSFERASE 28 U/L (12-78); ALBUMIN 1.2 G/DL (3.4-5.0); ALBUMIN/GLOBULIN RATIO 0.2 (1.1-1.5); ALKALINE PHOSPHATASE 116 IU/L (46-116); ANION GAP 5 (8-16); ASPARTATE AMINO TRANSFERASE 33 U/L (10-37); BILIRUBIN,TOTAL 0.2 MG/DL (0.1-1.0); BLOOD UREA NITROGEN 20 MG/DL (7-18); BUN/CREATININE RATIO 21.3 (5.4-32.0); CALCIUM 8.6 MG/DL (8.5-10.1); CHLORIDE 99 MMOL/L (99-107); CREATININE 0.94 MG/DL (0.60-1.10); GLUCOSE 117 MG/DL (70-104); POTASSIUM 4.2 MMOL/L (3.5-5.1); SODIUM 134 MMOL/L (135-145); TOTAL CARBON DIOXIDE 29.7 MMOL/L (24-32); TOTAL PROTEIN 6.3 G/DL (6.4-8.2); eGFR 85 ML/MIN
[2018-06-07 07:07] LABS: PLATELET ESTIMATE INCREASED; TOTAL CELLS COUNTED 100
[2018-06-07] MEDS: methylnaltrexone br 12mg/0.6ml inj***SubQ only SQ SCH (08:00)
[2018-06-07] MEDS: lactobacillus rhamnosus 10,000 MMU CELLS/CAPSULE PO SCH ×2 (08:38→20:55)
[2018-06-07] MEDS: CefTRIAXone 2gm/D5W 50ml 50 ML IV SCH (08:38)
[2018-06-07] MEDS: heparin, porcine 5000 units/ml vial SQ SCH ×2 (08:38→17:10)
[2018-06-07] MEDS: nicotine 21mg patch - 24 hr TD SCH (08:39)
[2018-06-07] MEDS: HYDROcodone/acetaminophen 10/325mg tab PO PRN ×2 (14:09→20:59)
[2018-06-08] MEDS: heparin, porcine 5000 units/ml vial SQ SCH ×3 (01:58→16:39)
[2018-06-08] MEDS: sodium chloride 0.45% 1,000 ML IV SCH ×2 (02:01→16:43)
[2018-06-08 03:00] VITALS: BP 106/61
[2018-06-08 06:00] VITALS: BP 118/64
[2018-06-08] MEDS: CefTRIAXone 2gm/D5W 50ml 50 ML IV SCH (09:09)
[2018-06-08] MEDS: lactobacillus rhamnosus 10,000 MMU CELLS/CAPSULE PO SCH (09:09)
[2018-06-08] MEDS: HYDROcodone/acetaminophen 10/325mg tab PO PRN ×2 (09:10→16:39)
[2018-06-08] MEDS: nicotine 21mg patch - 24 hr TD SCH (09:15)
[2018-06-08 11:00] VITALS: BP 105/54
[2018-06-08 15:00] VITALS: BP 111/57
[2018-06-08] MEDS ORDERED: CEPH-572 PO (16:30)
[2018-06-09] MEDS ORDERED: cephalexin 500mg capsule PO SCH
== END 2018-06-08 20:10 | disposition home or self-care (01) | DRG 853 ==
LOC: ER 11:47 → ED HOLD 14:35 → PCU 3S 19:15 → CMPBEDREQ 19:55 → CICU 2S 06-02 14:50 → PCU 3S 06-07 13:18
PROVIDERS: ADMIT Family Medicine
PROC: 0W9B30Z Drainage of Left Pleural Cavity with Drainage Device, Percutaneous Approach (ICD-10-PCS; principal; 2018-05-30)
PROC: B32T1ZZ Computerized Tomography (CT Scan) of Left Pulmonary Artery using Low Osmolar Contrast (ICD-10-PCS; 2018-05-30)
PROC: B3201ZZ Computerized Tomography (CT Scan) of Thoracic Aorta using Low Osmolar Contrast (ICD-10-PCS; 2018-05-30)
PROC: B32S1ZZ Computerized Tomography (CT Scan) of Right Pulmonary Artery using Low Osmolar Contrast (ICD-10-PCS; 2018-05-30)
PROC: 3E0L3GC Introduction of Other Therapeutic Substance into Pleural Cavity, Percutaneous Approach (ICD-10-PCS; 2018-05-31)
PROC: 0BCJ0ZZ Extirpation of Matter from Left Lower Lung Lobe, Open Approach (ICD-10-PCS; 2018-06-02)
PROC: 0BCG0ZZ Extirpation of Matter from Left Upper Lung Lobe, Open Approach (ICD-10-PCS; 2018-06-02)
PROC: 0W9B00Z Drainage of Left Pleural Cavity with Drainage Device, Open Approach (ICD-10-PCS; 2018-06-02)
PROC: 02HV33Z Insertion of Infusion Device into Superior Vena Cava, Percutaneous Approach (ICD-10-PCS; 2018-06-02)
PROC: 5A1945Z Respiratory Ventilation, 24-96 Consecutive Hours (ICD-10-PCS; 2018-06-02)
PROC: B548ZZA Ultrasonography of Superior Vena Cava, Guidance (ICD-10-PCS; 2018-06-02)
DX: A41.9 Sepsis, unspecified organism (principal); G93.41 Metabolic encephalopathy; J96.00 Acute respiratory failure, unspecified whether with hypoxia or hypercapnia; J85.1 Abscess of lung with pneumonia; J13 Pneumonia due to Streptococcus pneumoniae; N39.0 Urinary tract infection, site not specified; J91.8 Pleural effusion in other conditions classified elsewhere; B96.4 Proteus (mirabilis) (morganii) as the cause of diseases classified elsewhere; F17.210 Nicotine dependence, cigarettes, uncomplicated; N28.9 Disorder of kidney and ureter, unspecified; I95.9 Hypotension, unspecified
CPT/HCPCS: 32557; 32561; 96360; 99285; Z7506; 36415; 36600; 71045; 71250; 71275; 76775; 80048; 80053; 80202; 81001; 82550; 82803; 82948; 83605; 83690; 83735; 83880; 84100; 84134; 84145; 84443; 84484; 85018; 85025; 86885; 86900; 86901; 86920; 87040; 87070; 87075; 87077; 87088; 87102; 87186; 87502; 87503; 93005; 93308; 94002; 94003; 94640; 94668; 94760; 97110; 97116; 97161; 97530; A6257; A6258; A6449; A7000; A7048; A7526; C9250; G0378; J0330; J0692; J0696; J1100; J1170; J1200; J1644; J2001; J2175; J2250; J2270; J2405; J2704; J2997; J3010; J3370; J3480; J3490; J7030; J7120; P9045; P9047; Q9967

== ENCOUNTER 2021-09-20 17:01 | Emergency (ER) | payer OTHER, MEDICAID ==
[~2021-09-20] VITALS: Ht 203.2 cm; Wt 81.8 kg
[~2021-09-20 17:01] MED LIST: NO HOME MEDS
[2021-09-20 17:41] VITALS: BP 124/71
[2021-09-20] MEDS ORDERED: TETanus/Pertussis (Acell)/Diphther VAC/PF (Tdap-Adult) 0.5ml syringe IMVAC ONE (17:50)
[2021-09-20] MEDS ORDERED: LIDOcaine 1.5% w/epinephrine 1:200,000 5ml ampul IJ ONE (18:15)
[2021-09-20] MEDS ORDERED: bacitracin 15gm ointment TP ONE (18:15)
--- NOTE | 2021-09-20 18:27 | NUR ---
patient alert and verbally responsive, hooked up to the cardiac montior
--- NOTE | 2021-09-20 18:29 | NUR ---
tech asked to irrigate wounds
[2021-09-20] MEDS ORDERED: LIDOCAINE 2% w/EPI 1:100:000 30mL injection MDV**cath lab 1 only INJ ONE (18:35)
== END 2021-09-20 19:49 | disposition home or self-care (01) ==
LOC: ER 17:02
DX: S61.012A Laceration without foreign body of left thumb without damage to nail, initial encounter (principal); Z72.89 Other problems related to lifestyle; W27.0XXA Contact with workbench tool, initial encounter; Y93.89 Activity, other specified; Y92.89 Other specified places as the place of occurrence of the external cause; Y99.8 Other external cause status
CPT/HCPCS: 12002; 73140; 90471; 90715; 99283

== ENCOUNTER 2023-01-24 16:38 | Emergency (ER) | payer OTHER, MEDICAID ==
[~2023-01-24] VITALS: Ht 203.2 cm; Wt 77.2 kg
[2023-01-24 16:56] VITALS: BP 128/71
[2023-01-24] MEDS ORDERED: SULF1TAB49 PO (17:15)
[2023-01-24] MEDS ORDERED: IBUP-1986 PO (17:15)
[2023-01-25] MEDS ORDERED: CLIN-97 PO (04:33)
== END 2023-01-24 18:06 | disposition home or self-care (01) ==
LOC: ER 16:39
DX: M70.22 Olecranon bursitis, left elbow (principal); Y93.89 Activity, other specified; Z79.899 Other long term (current) drug therapy
CPT/HCPCS: 99283; A6449

== ENCOUNTER 2023-01-24 22:59 | Emergency (ER) | payer OTHER, MEDICAID ==
[~2023-01-24] VITALS: Ht 203.2 cm; Wt 77.3 kg
[~2023-01-24 22:59] MED LIST changes: +IBUP-1986 PO; +SULF1TAB49 PO
[2023-01-25] MEDS ORDERED: CLINDAMYCIN 600mg IN NS 50ML 50 ML IV ONE (02:40)
[2023-01-25] MEDS ORDERED: normal saline 1000ML IV soln IV ONE (02:40)
[2023-01-25] MEDS ORDERED: vancomycin/NS 1 GM ADD-VANTAGE 250 ML IV ONE (02:40)
[2023-01-25] MEDS ORDERED: ketorolac trometh. 30mg/ml inj. IV ONE (02:40)
[2023-01-25] MEDS ORDERED: clindamycin 600mg/D5W 50ml 50 ML IV ONE (02:45)
[2023-01-25 03:42] LABS: COLOR,URINE YELLOW (Yellow); GLUCOSE, URINE NEGATIVE (Neg); KETONES,URINE NEGATIVE (Neg); LEUKOCYTE ESTERASE ,URINE SMALL (Neg); NITRITES, URINE POSITIVE (Neg); OCCULT BLOOD,URINE TRACE-INTACT (Neg); PROTEIN,URINE NEGATIVE (Neg); UROBILINOGEN,URINE 0.2 E.U/dL (0.2-1.0)
[2023-01-25 03:45] LABS: BASOPHILS # (AUTO) 0.1 X10'3 (0-0.2); BASOPHILS % (AUTO) 0.4 % (0-1); EOSINOPHILS # (AUTO) 0.1 X10'3 (0-0.9); EOSINOPHILS % (AUTO) 0.6 % (0-6); HEMATOCRIT 39.1 % (42.0-52.0); LYMPHOCYTES # (AUTO) 1.9 X10'3 (1.1-4.8); LYMPHOCYTES % (AUTO) 14.2 % (21-51); MEAN CORPUSCULAR HEMOGLOBIN 29.7 PG (27.0-31.0); MEAN CORPUSCULAR HGB CONC 33.3 g/dL (33.0-36.5); MEAN CORPUSCULAR VOLUME 89.2 FL (78-98); MEAN PLATELET VOLUME 7.8 FL (7.4-10.4); MONOCYTES % (AUTO) 7.5 % (2-12); NEUTROPHILS # (AUTO) 10.4 X10'3 (1.8-7.7); NEUTROPHILS % (AUTO) 77.3 % (42-75); PLATELET COUNT 206 X10'3 (140-440); RED BLOOD COUNT 4.38 X10'6 (4.70-6.10); RED CELL DISTRIBUTION WIDTH 14.1 % (11.5-14.5); WHITE BLOOD COUNT 13.5 X10'3 (4.5-11.0)
[2023-01-25 03:48] LABS: CLARITY,URINE CLOUDY (Clear); UA COLLECTION TYPE CLN CATCH MIDSTREAM
[2023-01-25 03:52] LABS: BACTERIA,URINE 4+ /HPF (Neg); RBC,URINE 0-2 /HPF (0-2); WBC,URINE 30-50 /HPF (0-4)
[2023-01-25 03:53] LABS: MUCUS STRANDS FEW /LPF (Neg); SQUAMOUS EPITHELIAL CELL,UR FEW /LPF (FEW); WBC CLUMPS,URINE FEW /HPF (NEGATIVE)
[2023-01-25 04:07] LABS: ANION GAP 10 (8-16); BLOOD UREA NITROGEN 17 MG/DL (7-18); CALCIUM 9.4 MG/DL (8.5-10.1); CHLORIDE 102 MMOL/L (99-107); CREATININE 1.13 MG/DL (0.60-1.10); GLUCOSE 107 MG/DL (70-104); POTASSIUM 4.2 MMOL/L (3.5-5.1); SODIUM 136 MMOL/L (135-145); TOTAL CARBON DIOXIDE 24.2 MMOL/L (24-32); eGFR 68 ML/MIN
[2023-01-25 04:08] LABS: ALANINE AMINOTRANSFERASE 25 U/L (12-78); ALBUMIN 3.2 G/DL (3.4-5.0); ALBUMIN/GLOBULIN RATIO 0.8 (1.1-1.5); ALKALINE PHOSPHATASE 94 IU/L (46-116); ASPARTATE AMINO TRANSFERASE 15 U/L (10-37); BILIRUBIN,TOTAL 0.5 MG/DL (0.1-1.0); TOTAL PROTEIN 7.4 G/DL (6.4-8.2)
[2023-01-25] MEDS ORDERED: sulfamethoxazole/trimethoprim DS (800/160mg) tablet PO ONE (04:30)
[2023-01-25] MEDS ORDERED: CLIN-97 PO (04:33)
[2023-01-25 05:04] VITALS: BP 128/72
== END 2023-01-25 05:07 | disposition home or self-care (01) ==
LOC: ER 23:00
DX: L03.114 Cellulitis of left upper limb (principal); N39.0 Urinary tract infection, site not specified; Z79.2 Long term (current) use of antibiotics; Z79.1 Long term (current) use of non-steroidal anti-inflammatories (NSAID)
CPT/HCPCS: 36415; 71045; 80053; 81001; 83605; 83735; 84145; 85025; 87040; 87077; 87088; 87186; 93005; 96365; 96368; 96375; 99285; J1885; J3370; J3490; J7030

== ENCOUNTER 2023-04-23 19:54 | Emergency (ER) | payer OTHER, MEDICAID ==
[~2023-04-23] VITALS: Ht 203.2 cm; Wt 73.2 kg
[~2023-04-23 19:54] MED LIST changes: +CLIN-97 PO; -SULF1TAB49 PO
[2023-04-23 20:07] VITALS: TEMP 98
[2023-04-23] MEDS ORDERED: ketorolac tromethamine 15mg/ml inj. IV ONE (21:05)
[2023-04-23 21:22] LABS: BASOPHILS % (AUTO) 0.5 % (0-1); EOSINOPHILS % (AUTO) 0.6 % (0-6); HEMATOCRIT 36.8 % (42.0-52.0); HEMOGLOBIN 12.5 g/dl (14.0-17.9); LYMPHOCYTES % (AUTO) 13.7 % (21-51); MEAN CORPUSCULAR HEMOGLOBIN 29.8 PG (27.0-31.0); MEAN CORPUSCULAR HGB CONC 33.9 g/dL (33.0-36.5); MEAN CORPUSCULAR VOLUME 87.8 FL (78-98); MEAN PLATELET VOLUME 6.5 FL (7.4-10.4); MONOCYTES # (AUTO) 0.6 X10'3 (0-0.9); NEUTROPHILS # (AUTO) 5.4 X10'3 (1.8-7.7); NEUTROPHILS % (AUTO) 76.2 % (42-75); PLATELET COUNT 194 X10'3 (140-440); RED BLOOD COUNT 4.19 X10'6 (4.70-6.10)
[2023-04-23 21:35] LABS: ALANINE AMINOTRANSFERASE 48 U/L (12-78); ALBUMIN/GLOBULIN RATIO 0.7 (1.1-1.5); ALKALINE PHOSPHATASE 111 IU/L (46-116); ANION GAP 8 (8-16); ASPARTATE AMINO TRANSFERASE 27 U/L (10-37); BILIRUBIN,TOTAL 0.3 MG/DL (0.1-1.0); BLOOD UREA NITROGEN 21 MG/DL (7-18); BUN/CREATININE RATIO 16.9 (10.0-20.0); CALCIUM 9.4 MG/DL (8.5-10.1); CHLORIDE 98 MMOL/L (99-107); CREATININE 1.24 MG/DL (0.60-1.10); GLUCOSE 130 MG/DL (70-104); POTASSIUM 4.2 MMOL/L (3.5-5.1); SODIUM 131 MMOL/L (135-145); TOTAL CARBON DIOXIDE 25.3 MMOL/L (24-32); TOTAL PROTEIN 7.1 G/DL (6.4-8.2); eCRCL 71 ML/MIN; eGFR 61 ML/MIN
[2023-04-23] MEDS ORDERED: iohexol 300mg/ml 100ml inj. ONE (21:36)
[2023-04-23 21:59] LABS: LIPASE 40 U/L (16-77)
--- NOTE | 2023-04-23 22:01 | NUR ---
Pt to CT
--- NOTE | 2023-04-23 22:26 | NUR ---
Pt back from CT
[2023-04-23 22:27] LABS: BILIRUBIN,URINE NEGATIVE (Neg); CLARITY,URINE SLIGHTLY CLOUDY (Clear); COLOR,URINE YELLOW (Yellow); GLUCOSE, URINE NEGATIVE (Neg); KETONES,URINE NEGATIVE (Neg); LEUKOCYTE ESTERASE ,URINE MODERATE (Neg); NITRITES, URINE POSITIVE (Neg); OCCULT BLOOD,URINE TRACE-INTACT (Neg); PH,URINE 6.5 (4.8-8.0); PROTEIN,URINE NEGATIVE (Neg); UROBILINOGEN,URINE 0.2 E.U/dL (0.2-1.0)
[2023-04-23 22:28] LABS: UA COLLECTION TYPE CLN CATCH MIDSTREAM
[2023-04-23] MEDS ORDERED: sulfamethoxazole/trimethoprim DS (800/160mg) tablet PO ONE (22:30)
[2023-04-23] MEDS ORDERED: lactulose 20gm/30ml cup PO ONE (22:30)
[2023-04-23] MEDS ORDERED: POLY17PO10 PO (22:35)
[2023-04-23 23:00] VITALS: BP 144/82; PULSE 67; RESP 18; O2SAT 97
[2023-04-23 23:00] LABS: BACTERIA,URINE 3+ /HPF (Neg); MUCUS STRANDS FEW /LPF (Neg); RBC,URINE 0-2 /HPF (0-2); SQUAMOUS EPITHELIAL CELL,UR FEW /LPF (FEW); WBC,URINE 30-50 /HPF (0-4)
== END 2023-04-23 23:05 | disposition home or self-care (01) ==
LOC: ER 19:55
DX: N39.0 Urinary tract infection, site not specified (principal); K59.00 Constipation, unspecified; F17.200 Nicotine dependence, unspecified, uncomplicated; Z79.2 Long term (current) use of antibiotics; Z79.1 Long term (current) use of non-steroidal anti-inflammatories (NSAID)
CPT/HCPCS: 36415; 74178; 80053; 81001; 83690; 85025; 87077; 87088; 87186; 96374; 99285; J1885; J3490; Q9967